=== PATIENT | female | born 1955 | race Caucasian/White ===

== ENCOUNTER → 2019-02-13 | Outpatient (CLI) | payer MEDICARE | END | disposition home or self-care (01) | LOC: PCVCCLINIC 14:31 | PROVIDERS: ATTEND Internal Medicine Cardiovascular Disease | DX: I25.10 Atherosclerotic heart disease of native coronary artery without angina pectoris (principal); E78.00 Pure hypercholesterolemia, unspecified; K86.1 Other chronic pancreatitis; I12.9 Hypertensive chronic kidney disease with stage 1 through stage 4 chronic kidney disease, or unspecified chronic kidney disease; N18.3 Chronic kidney disease, stage 3 (moderate); F17.210 Nicotine dependence, cigarettes, uncomplicated; Z79.82 Long term (current) use of aspirin | CPT/HCPCS: 36415; 80061; 93005; G0463 ==

== ENCOUNTER → 2019-03-15 | Outpatient (CLI) | payer MEDICARE ==
--- NOTE | 2019-03-15 10:52 | PCVCIMAG ---
EXAM: BILATERAL RENAL ULTRASOUND AND BILATERAL RENAL DUPLEX INDICATION: Hypertension FINDINGS: Right kidney: Length measures 7.4 cm. No hydronephrosis or extensive renal scarring. Right renal duplex: Adequate technical quality. 90% stenosis proximal right renal artery stenosis. The aortic to renal artery ratio is 5.2. The renal vein is patent. Left kidney: Length measures 9.2 cm. No hydronephrosis or extensive renal scarring. Left renal duplex: Adequate technical quality. 80% stenosis proximal renal artery stenosis. The aortic to renal artery ratio is 4.1. The renal vein is patent. Bladder: No obvious abnormalities. IMPRESSION: 90% stenosis proximal right renal artery. 80% stenosis left renal artery. EXAM: MESENTERIC ARTERIAL DUPLEX INDICATION: Mesenteric Atherosclerosis. FINDINGS: Celiac Hillman: No flow limiting stenosis. No branch vessel stenosis. Superior Mesenteric Artery: 90% stenosis proximally. No branch vessel stenosis. Inferior Mesenteric Artery: Not well seen. Mesenteric veins are patent where seen. IMPRESSION: 90% stenosis proximal superior mesenteric artery. Inferior mesenteric artery not definitely identified. LOC:[id number]
--- NOTE | 2019-03-18 15:05 | PCVCIMAG ---
APPROVED REPORT Study performed: 03/15/2019 08:32:52 EXAM: Comprehensive 2D, Doppler, and color-flow Echocardiogram Patient Location: Echo lab Room #: 2Status: routine BSA: 1.77 HR: 61 bpm Rhythm: NSR Other Information Study Quality: Good Risk Factors: Cardiac Risk Factors: HTN Indications CAD Hypertension/HDD S/P STENT X 3, LVH 2D Dimensions IVSd: 15.00 (7-11mm)LVOT Diam: 20.88 (18-24mm) LVDd: 40.76 mm PWd: 14.31 (7-11mm)Ascending Ao: 32.70 (22-36mm) LVDs: 28.71 (25-40mm) Left Atrium: 33.84 (27-40mm) Aortic Root: 25.79 mm LV Single Plane 4CH: 60.49 % LV Single Plane 2CH: 55.32 % Biplane EF: 58.8 % Volumes Left Atrial Volume (Systole) Single Plane 4CH: 46.98 mLSingle Plane 2CH: 66.09 mL Biplane LA Volume: 57.00 mLLA ESV Index: 32.00 mL/m2 Aortic Valve AoV Peak Chris.: 1.68 m/s AO Peak Gr.: 11.86 mmHgLVOT Max P.93 mmHg AO Mean Gr.: 6.39 mmHg AO V2 Mean: 1.21 m/sLVOT Max V: 0.86 m/s AO V2 VTI: 31.47 cm JUANA Vmax: 1.74 cm2 Mitral Valve E/A Ratio: 0.6 MV Decel. Time: 326.66 ms MV E Max Chris.: 0.57 m/s MV A Chris.: 0.92 m/s TDI E/Lateral E': 9.50E/Medial E': 14.25 Medial E' Chris.: 0.04 m/s Lateral E' Chris.: 0.06 m/s Pulmonary Valve PV Peak Chris.: 1.02 m/sPV Peak Gr.: 4.15 mmHg Pulmonary Vein P Vein S: 0.73 m/sP Vein A: 0.48 m/s P Vein D: 0.40 m/sP Vein A Dur.: 114.2 msec P Vein S/D Ratio: 1.83 Tricuspid Valve TR Peak Chris.: 2.17 m/s TR Peak Gr.: 18.75 mmHg TV Vmax: 0.66 m/sPA Pressure: 26.00 mmHg Left Ventricle The left ventricle is normal size. There is normal LV segmental wall motion. Moderate concentric left ventricular hypertrophy. There is no abnormal gradient in the LV or LVOT. There is no ventricular septal defect visualized. Left ventricular systolic function is normal. The left ventricular ejection fraction is within the normal range. LVEF is 55-60%. Grade I - abnormal relaxation pattern. Right Ventricle The right ventricle is normal size. The right ventricular systolic function is normal. Atria The left atrium size is normal. The right atrium size is normal. Aortic Valve Aortic valve is trileaflet. The aortic valve is normal in structure and function. No aortic regurgitation is present. There is no aortic valvular stenosis. Mitral Valve The mitral valve is normal in structure. Trace to mild mitral regurgitation. No evidence of mitral valve stenosis. Tricuspid Valve The tricuspid valve is normal in structure. Trace to mild tricuspid regurgitation with a PA pressure of 26 mmHg. Pulmonic Valve The pulmonary valve is normal in structure. There is no pulmonic valvular regurgitation. Great Vessels The aortic root is normal in size. The ascending aorta is normal in size. Aortic arch is normal in caliber. IVC is normal in size and collapses >50% with inspiration. Pericardium There is no pericardial effusion. There is no pleural effusion. <Conclusion> The left ventricle is normal size. Moderate concentric left ventricular hypertrophy. There is no abnormal gradient in the LV or LVOT. LVEF is 55-60%. Grade I - abnormal relaxation pattern. The right ventricular systolic function is normal. The left atrium size is normal. Aortic valve is trileaflet. The aortic valve is normal in structure and function. Trace to mild mitral regurgitation. Trace to mild tricuspid regurgitation with a PA pressure of 26 mmHg. The aortic root is normal in size. There is no pericardial effusion.
== END | disposition home or self-care (01) ==
LOC: PCVCIMAG 08:27
PROVIDERS: ATTEND Internal Medicine Cardiovascular Disease
DX: I08.1 Rheumatic disorders of both mitral and tricuspid valves (principal); I13.10 Hypertensive heart and chronic kidney disease without heart failure, with stage 1 through stage 4 chronic kidney disease, or unspecified chronic kidney disease; N18.9 Chronic kidney disease, unspecified; I70.1 Atherosclerosis of renal artery; K55.1 Chronic vascular disorders of intestine; E78.5 Hyperlipidemia, unspecified
CPT/HCPCS: 36415; 76770; 80061; 93306; 93975; G0463

== ENCOUNTER → 2019-03-27 | Outpatient (CLI) | payer MEDICARE ==
--- NOTE | 2019-03-27 15:32 | PCVCIMAG ---
EXAM: DUPLEX ULTRASOUND OF THE RIGHT GROIN INDICATION: Groin swelling and pain. FINDINGS: No pseudoaneurysm is present. The common femoral artery and vein are patent. No arteriovenous fistula is seen. IMPRESSION: Study is negative for pseudoaneurysm. LOC:[id number]
== END | disposition home or self-care (01) ==
LOC: PCVCIMAG 14:22
PROVIDERS: ATTEND Internal Medicine Cardiovascular Disease
DX: R10.31 Right lower quadrant pain (principal); I25.10 Atherosclerotic heart disease of native coronary artery without angina pectoris; I70.1 Atherosclerosis of renal artery; I12.9 Hypertensive chronic kidney disease with stage 1 through stage 4 chronic kidney disease, or unspecified chronic kidney disease; N18.3 Chronic kidney disease, stage 3 (moderate); E78.00 Pure hypercholesterolemia, unspecified; D50.9 Iron deficiency anemia, unspecified
CPT/HCPCS: 36415; 80061; 93005; 93926; G0463

== ENCOUNTER → 2019-05-03 | Outpatient (CLI) | payer MEDICARE ==
--- NOTE | 2019-05-03 12:38 | PCVCIMAG ---
EXAM: RIGHT LOWER EXTREMITY ARTERIAL DUPLEX INDICATION: Peripheral Arterial Disease. Leg pain. FINDINGS: Right Leg: Mild stenosis yocha dehe common femoral artery. Profunda femoral artery is patent. Mid and upper superficial femoral artery are patent. Increased systolic velocity 592 cm/s distal superficial femoral artery consistent with 90% stenosis. Popliteal artery is patent. The anterior tibial, peroneal, and posterior tibial arteries are patent. IMPRESSION: 90% stenosis distal yocha dehe right superficial femoral artery. LOC:[id number]
== END | disposition home or self-care (01) ==
LOC: PCVCIMAG 11:34
PROVIDERS: ATTEND Internal Medicine Cardiovascular Disease
DX: I73.9 Peripheral vascular disease, unspecified (principal); F17.200 Nicotine dependence, unspecified, uncomplicated
CPT/HCPCS: 93926